=== PATIENT | female | born 1965 | race Caucasian/White ===

== ENCOUNTER → 2016-07-19 | Outpatient (CLI) | payer BC | LOC: MC.RAD 08:00 | DX: Z12.31 Encounter for screening mammogram for malignant neoplasm of breast (principal) ==

== ENCOUNTER → 2018-11-20 | Outpatient (CLI) | payer BC | LOC: MC.RAD 11:45 | DX: Z12.31 Encounter for screening mammogram for malignant neoplasm of breast (principal) ==

== ENCOUNTER → 2020-11-19 | Outpatient (CLI) | payer BC | LOC: MC.RAD 11:45 | DX: Z12.31 Encounter for screening mammogram for malignant neoplasm of breast (principal) ==